=== PATIENT | male | born 1955 | race Two or more races ===

== ENCOUNTER 2020-08-06 15:35 | Outpatient (CLI) | payer OTHER | END 2020-08-06 18:00 | disposition home or self-care (01) | LOC: LAB 15:35 | PROVIDERS: ATTEND Orthopaedic Surgery | DX: Z03.818 Encounter for observation for suspected exposure to other biological agents ruled out (principal); Z20.822 Contact with and (suspected) exposure to COVID-19 ==

== ENCOUNTER 2021-08-14 10:10 | Outpatient (CLI) | payer OTHER | END 2021-08-14 12:00 | disposition home or self-care (01) | LOC: ASH CLINIC 10:10 | PROVIDERS: ATTEND Specialist | DX: U07.1 COVID-19 (principal) ==

== ENCOUNTER → 2024-03-27 08:00 | Outpatient (CLI) | payer OTHER ==
[~2024-03-27] VITALS: Ht 172.7 cm; Wt 104.3 kg
[~2024-03-27 08:00] MED LIST: KAPSPARGO SPRIN25 MG PO; TAMS0.4C PO
[2024-03-27 08:55] LABS: PH,URINE 6.5 (5.0-8.0); URINE APPEARANCE Clear; URINE BILIRRUBIN Negative (NEGATIVE); URINE BLOOD Negative; URINE COLOR Yellow; URINE GLUCOSE Negative (NEGATIVE); URINE KETONE Trace (NEGATIVE); URINE LEUKOCYTE Negative; URINE NITRATE Negative; URINE PROTEIN Negative (NEGATIVE)
[2024-03-27 08:56] LABS: HEMATOCRIT 45.5 % (39.0-48.0); HEMOGLOBIN 16.1 g/dL (13-16.00); MEAN CELL VOLUME 101.5 fL (80.0-100.00); MEAN CORPUSCULAR HEMOGLOBIN 35.8 pg (27.00-32.0); MEAN CORPUSCULAR HGB CONC 35.3 g/dl (32.0-36.0); PLATELET COUNT 184 K/uL (150-450); RED BLOOD COUNT 4.48 M/uL (4.00-6.00); RED CELL DISTRIBUTION WIDTH 13.8 % (11.5-14.5)
[2024-03-27 09:00] LABS: URINE BACTERIA 7.3 uL (0.0-1933); URINE WBC 1.8 uL (0.0-23.2)
[2024-03-27 09:25] LABS: INR 1.14; PARTIAL THROMBOPLASTIN TIME 27.1 SECONDS (22.0-34.0); PROTHROMBIN TIME 12.3 SECONDS (9.0-11.5)
[2024-03-27 09:27] VITALS: BP 140/70
[2024-03-27 09:27] LABS: URINE EPITHELIAL CELLS 0.6 uL (0.0-38.8); URINE RBC 1.9 uL (0.0-20.8)
[2024-03-27 09:58] LABS: CALCIUM 8.9 mg/dL (8.5-10.1); CREATININE SERUM 0.79 mg/dL (0.70-1.30); GFR 96.96; POTASSIUM 3.9 mEq/L (3.5-5.1)
== END | disposition home or self-care (01) ==
LOC: RAD 08:00 → ADM 08:00 → EDSTATUS 04-13 08:00 → CIR.AMB 04-13 08:00
PROVIDERS: ATTEND Surgery
DX: K42.0 Umbilical hernia with obstruction, without gangrene (principal); I10 Essential (primary) hypertension; R10.9 Unspecified abdominal pain